=== PATIENT | female | born 1955 | race Hispanic/Latino ===

== ENCOUNTER → 2020-02-06 | Day surgery (SDC) | payer BC ==
[2020-02-03 13:39] LABS: BASOPHILS % 0.3 % (0.0-1.0); EOSINOPHILS # (AUTO) 0.2 (0.0-0.4); EOSINOPHILS % 2.3 % (0.0-6.0); HEMATOCRIT 31.1 % (34.2-44.1); HEMOGLOBIN 10.2 g/dL (12.0-16.0); LYMPHOCYTES % 33.9 % (18.0-39.1); MEAN CORPUSCULAR HEMOGLOBIN 31.6 pg (28-32); MEAN CORPUSCULAR HGB CONC 32.8 g/dL (31-35); MEAN CORPUSCULAR VOLUME 96.3 fL (81-99); MONOCYTES # (AUTO) 0.6 (0.2-0.8); MONOCYTES % 6.4 % (4.4-11.3); NEUTROPHILS % 56.9 % (38.7-80.0); PLATELET COUNT 199 x10e3/uL (140-360); RED BLOOD COUNT 3.23 x10e6/uL (3.6-5.1); RED CELL DISTRIBUTION WIDTH 11.8 % (11.7-14.4)
[~2020-02-06] MED LIST: ALKA-SELTZER H1 EAC1 PO; ATORVASTATIN CA20 MG PO; CLONIDINE HCL0.1 MG PO; ELIQUIS5 M1 PO; GAS-X125 MG PO; GLIPIZIDE ER5 MG PO; LANTUS 3ML100 UNITS/ SQ; LEVOTHYROXINE75 MCG PO; LISINOPRIL-HCT1 EACH PO; METOPROLOL SUCC25 MG PO; NOVOLIN N100 UNIT/1 SQ; PROPOFOL IV EMULSION 10 MG/ML 20 ML VIAL ONE; VITAMIN D2 PO; VITAMIN D250 MCG
[2020-02-06 12:10] VITALS: BP 128/69
== END | disposition home or self-care (01) ==
LOC: OR 08:39
PROVIDERS: ATTEND Internal Medicine
DX: Z12.11 Encounter for screening for malignant neoplasm of colon (principal); D12.5 Benign neoplasm of sigmoid colon; K57.30 Diverticulosis of large intestine without perforation or abscess without bleeding; K64.0 First degree hemorrhoids; E66.9 Obesity, unspecified; I10 Essential (primary) hypertension; K21.9 Gastro-esophageal reflux disease without esophagitis; I69.354 Hemiplegia and hemiparesis following cerebral infarction affecting left non-dominant side; R78.5 Finding of other psychotropic drug in blood; E03.9 Hypothyroidism, unspecified; Z01.810 Encounter for preprocedural cardiovascular examination; Z01.812 Encounter for preprocedural laboratory examination; Z11.59 Encounter for screening for other viral diseases; Z79.02 Long term (current) use of antithrombotics/antiplatelets; Z79.4 Long term (current) use of insulin; Z68.32 Body mass index [BMI] 32.0-32.9, adult
CPT/HCPCS: 36415 ×2; 45385; 82948; 85025; 93005; J2704; U0002; 45378